=== PATIENT | female | born 1975 ===

== ENCOUNTER → 2018-09-01 21:23 | Outpatient (REF) | payer OTHER, SELFPAY ==
[2018-09-01 22:22] LABS: Free T3, Triiodothyronine Free 3.52 pg/mL (2.77-5.27); Free T4, Direct Thyroxine 1.14 ng/dL (0.78-2.19)
[2018-09-01 22:35] LABS: Thyroid Stimulating Hormone 2.05 uIU/mL (0.47-4.68)
== END ==
LOC: LAB 21:23
PROVIDERS: Visit Provider Physician Assistant
DX: E06.3 Autoimmune thyroiditis (principal)
CPT/HCPCS: 36415; 84439; 84443; 84481

== ENCOUNTER → 2018-11-19 21:02 | Outpatient (REF) | payer OTHER, SELFPAY ==
[2018-11-19 23:40] LABS: Free T4, Direct Thyroxine 1.52 ng/dL (0.78-2.19)
[2018-11-19 23:53] LABS: Thyroid Stimulating Hormone 2.91 uIU/mL (0.47-4.68)
== END ==
LOC: LAB 21:02
PROVIDERS: Visit Provider Physician Assistant
DX: E06.3 Autoimmune thyroiditis (principal)
CPT/HCPCS: 36415; 84439; 84443; 84481